=== PATIENT | female | born 1945 | race African-American/Black ===

== ENCOUNTER 2020-06-12 22:19 | Inpatient (IN) | payer MEDICAID, MEDICARE ==
[~2020-06-12] VITALS: Ht 160 cm; Wt 70.1 kg
[2020-06-12] MEDS ORDERED: DEXTROSE 50% WATER 50ML SYRINGE IV ONE (22:45)
[2020-06-12 23:16] LABS: BASOPHILS % 0.3 % (0.0-2.0); EOSINOPHILS % 0.1 % (0.0-5.0); HEMOGLOBIN. 10.7 g/dL (12.0-16.0); LYMPHOCYTES % 11.7 % (20.0-50.0); MEAN CORPUSCULAR HEMOGLOBIN 20.3 pg (28.0-32.0); MEAN CORPUSCULAR VOLUME 68.3 fL (81.0-99.0); MEAN PLATELET VOLUME 8.7 fl (7.4-10.4); MONOCYTES % 7.4 % (2.0-8.0); NEUTROPHILS % 80.5 % (40.0-76.0); PLATELET 413 x1000/uL (130-400); RED BLOOD CELL COUNT 5.27 mill/uL (4.2-5.4); RED CELL DISTRIBUTION WIDTH 26.3 % (11.6-14.6)
[2020-06-12 23:35] LABS: CHLORIDE 99 mEq/L (98-107)
[2020-06-13] MEDS ORDERED: CEFTRIAXONE 1 G PREMIX 50 ML IV ONE (01:00)
[2020-06-13] MEDS ORDERED: DOXYCYCLINE HYCLATE 100 MG/VIAL IV ONE (01:15)
[2020-06-13] MEDS ORDERED: DOXYCYCLINE 100MG in DEXTROSE 5% WATER 100ML IV NR (01:30)
[2020-06-13 02:18] LABS: CLARITY URINE CLEAR (CLEAR); COLOR URINE YELLOW (YELLOW); KETONES URINE 1+ (NEGATIVE); LEUKOCYTE ESTERASE URINE NEGATIVE (NEGATIVE); NITRITE URINE NEGATIVE (NEGATIVE); OCCULT BLOOD URINE 3+ (NEGATIVE); PH URINE 6.5 (4.5-8.0); PROTEIN URINE NEGATIVE (NEGATIVE); SPECIFIC GRAVITY URINE 1.012 (1.005-1.030)
[2020-06-13] MEDS ORDERED: SODIUM CHLORIDE 0.9% 500 ML IV ONE (02:30)
[2020-06-13] MEDS ORDERED: ONDANSETRON HCL 4MG/2ML INJ IV PRN (05:00)
[2020-06-13] MEDS ORDERED: CLONIDINE 0.1MG TABLET PO PRN (05:00)
[2020-06-13] MEDS ORDERED: ACETAMINOPHEN 325MG TABLET PO PRN (05:00)
[2020-06-13] MEDS ORDERED: TRAZODONE HCL 50MG TABLET PO PRN (05:00)
[2020-06-13] MEDS: SODIUM CHLORIDE 0.9% 1,000 ML IV SCH ×2 (05:10→09:58)
[2020-06-13] MEDS ORDERED: PIPERACILLIN/TAZOBACTAM 3.375 G in DEXTROSE 5% WATER 50 ML IV SCH (06:00)
[2020-06-13] MEDS ORDERED: POTASSIUM CHLORIDE 20MEQ TABLET SR PO NR (06:00)
[2020-06-13] MEDS ORDERED: VANCOMYCIN 1 G PREMIX 200 ML IV SCH (06:15)
[2020-06-13] MEDS ORDERED: HEPARIN 5000 UNITS/ML VIAL SUBCUT SCH (09:00)
[2020-06-13] MEDS: ENOXAPARIN 80MG/0.8ML SYR SUBCUT SCH ×2 (10:08→21:00)
[2020-06-13] MEDS: METOPROLOL TARTRATE 25MG TABLET PO SCH ×2 (10:36→21:00)
[2020-06-13] MEDS: ASPIRIN 81MG EC TABLET PO SCH (10:37)
[2020-06-13 10:45] LABS: BASOPHILS % 0.1 % (0.0-2.0); HEMATOCRIT. 35.2 % (36.0-48.0); HEMOGLOBIN. 10.5 g/dL (12.0-16.0); MEAN CORPUSCULAR HEMOGLOBIN 19.9 pg (28.0-32.0); MEAN CORPUSCULAR VOLUME 66.5 fL (81.0-99.0); MEAN PLATELET VOLUME 8.8 fl (7.4-10.4); MONOCYTES % 6.7 % (2.0-8.0); NEUTROPHILS % 84.2 % (40.0-76.0); PLATELET 374 x1000/uL (130-400); RED CELL DISTRIBUTION WIDTH 26.3 % (11.6-14.6)
[2020-06-13 10:48] LABS: CHLORIDE 97 mEq/L (98-107)
[2020-06-13 10:59] LABS: INR 1.3; PROTHROMBIN TIME 13.7 sec (9.6-11.0)
[2020-06-13 11:32] LABS: PLATELET ESTIMATE NORMAL
[2020-06-13] MEDS: PIPERACILLIN/TAZ 3.375G PREMIX 50 ML IV SCH ×2 (12:49→18:23)
[2020-06-13] MEDS ORDERED: POTASSIUM CHLORIDE INJ 40 MEQ in DEXT 5% WATER 250 ML IV SCH (13:00)
[2020-06-13] MEDS ORDERED: POTASSIUM CHLORIDE 20MEQ TABLET SR PO SCH (13:00)
[2020-06-13] MEDS ORDERED: DEXTROSE 50% WATER 50ML SYRINGE IV PRN (14:45)
[2020-06-13] MEDS ORDERED: VANCOMYCIN 750 MG PREMIX 150 ML IV SCH (18:00)
[2020-06-13] MEDS: BLOOD SUGAR DIAGNOSTIC STRIP TEST SCH ×2 (18:42→21:54)
[2020-06-13] MEDS: ATORVASTATIN CALCIUM 20MG TABLET PO SCH (21:00)
[2020-06-14 01:46] VITALS: BP 123/58
[2020-06-14 03:00] VITALS: BP 141/82
[2020-06-14] MEDS: PIPERACILLIN/TAZOBACTAM 3.375 G in DEXT 5% WATER 100 ML IV SCH ×3 (03:27→11:38)
[2020-06-14] MEDS ORDERED: VANCOMYCIN 750 MG PREMIX 150 ML IV SCH (06:00)
[2020-06-14] MEDS: SODIUM CHLORIDE 0.9% 1,000 ML IV SCH (06:37)
[2020-06-14 06:50] LABS: BASOPHILS % 0.1 % (0.0-2.0); HEMATOCRIT. 34.4 % (36.0-48.0); HEMOGLOBIN. 10.3 g/dL (12.0-16.0); LYMPHOCYTES % 17.4 % (20.0-50.0); MEAN CORPUSCULAR HEMOGLOBIN 20.1 pg (28.0-32.0); MEAN CORPUSCULAR VOLUME 67.2 fL (81.0-99.0); MEAN PLATELET VOLUME 8.8 fl (7.4-10.4); MONOCYTES % 8.6 % (2.0-8.0); NEUTROPHILS % 73.9 % (40.0-76.0); PLATELET 293 x1000/uL (130-400); RED BLOOD CELL COUNT 5.13 mill/uL (4.2-5.4); RED CELL DISTRIBUTION WIDTH 25.8 % (11.6-14.6)
[2020-06-14 07:39] LABS: CHLORIDE 99 mEq/L (98-107)
[2020-06-14 08:00] VITALS: BP 131/81
[2020-06-14] MEDS: BLOOD SUGAR DIAGNOSTIC STRIP TEST SCH ×4 (08:18→20:06)
[2020-06-14] MEDS: ENOXAPARIN 80MG/0.8ML SYR SUBCUT SCH ×2 (09:18→20:10)
[2020-06-14] MEDS: METOPROLOL TARTRATE 25MG TABLET PO SCH (09:18)
[2020-06-14] MEDS: ASPIRIN 81MG EC TABLET PO SCH (09:18)
[2020-06-14 10:07] LABS: *AMPHETAMINES SCREEN URINE NEGATIVE (NEGATIVE); *BARBITURATES SCREEN URINE NEGATIVE (NEGATIVE); *BENZODIAZEPINES SCREEN URINE NEGATIVE (NEGATIVE)
[2020-06-14 10:08] LABS: *COCAINE SCREEN URINE NEGATIVE (NEGATIVE); CANNABINOID URINE SCREEN NEGATIVE (NEGATIVE); METHADONE URINE SCREEN NEGATIVE (NEGATIVE); OPIATES URINE SCREEN PRESUMTIVE POSITIVE (NEGATIVE); PHENCYCLIDINE URINE SCREEN NEGATIVE (NEGATIVE)
[2020-06-14 12:00] VITALS: BP 130/73
[2020-06-14] MEDS ORDERED: POTASSIUM CHLORIDE 20MEQ TABLET SR PO NR (12:30)
[2020-06-14] MEDS ORDERED: FUROSEMIDE 100MG/10ML VIAL IVP NR (12:34)
[2020-06-14] MEDS ORDERED: POTASSIUM CHLORIDE 20MEQ TABLET SR PO SCH ×2 (14:00→16:00)
[2020-06-14 16:00] VITALS: BP 132/83
[2020-06-14] MEDS ORDERED: FUROSEMIDE 40MG/4ML VIAL IVP SCH (17:15)
[2020-06-14 20:00] VITALS: BP 136/83
[2020-06-14] MEDS: CARVEDILOL 6.25 MG TABLET PO SCH (20:10)
[2020-06-14] MEDS: ATORVASTATIN CALCIUM 20MG TABLET PO SCH (20:10)
[2020-06-15] VITALS: BP 127/71
[2020-06-15 04:00] VITALS: BP 107/59
[2020-06-15 07:03] LABS: HEMATOCRIT. 32.5 % (36.0-48.0); HEMOGLOBIN. 9.5 g/dL (12.0-16.0); MEAN CORPUSCULAR HEMOGLOBIN 19.9 pg (28.0-32.0); MEAN CORPUSCULAR VOLUME 68.1 fL (81.0-99.0); MEAN PLATELET VOLUME 9.3 fl (7.4-10.4); PLATELET 291 x1000/uL (130-400); RED BLOOD CELL COUNT 4.77 mill/uL (4.2-5.4); RED CELL DISTRIBUTION WIDTH 25.9 % (11.6-14.6)
[2020-06-15 07:49] LABS: CHLORIDE 104 mEq/L (98-107)
[2020-06-15 08:00] VITALS: BP 132/87
[2020-06-15] MEDS: BLOOD SUGAR DIAGNOSTIC STRIP TEST SCH ×4 (08:16→21:00)
[2020-06-15] MEDS: CARVEDILOL 6.25 MG TABLET PO SCH ×2 (08:20→20:52)
[2020-06-15] MEDS: ASPIRIN 81MG EC TABLET PO SCH (08:20)
[2020-06-15] MEDS: ENOXAPARIN 80MG/0.8ML SYR SUBCUT SCH ×2 (08:21→20:52)
[2020-06-15] MEDS ORDERED: ATOR20TA PO (09:39)
[2020-06-15] MEDS ORDERED: LOSA25TA26 MT (09:39)
[2020-06-15] MEDS ORDERED: COR6 PO (09:39)
[2020-06-15] MEDS ORDERED: RIVA20TA MT (09:39)
[2020-06-15] MEDS ORDERED: ASPI-1406 PO (09:39)
[2020-06-15 11:53] LABS: BG BASE EXCESS 8.2 mmol/L (-2.0-2.0); BG CARBOXYHEMOGLOBIN 1.1 % (0.5-1.5); BG HCO3 ACT 34.4 mmol/L (22.0-26.0); BG METHEMOGLOBIN 0.4 % (0.0-1.5); BG OXYGEN SATURATION 80.7 % (92.0-98.5); BG OXYHEMOGLOBIN 79.5 % (94.0-97.0); BG PCO2 57.4 mmHg (35.0-45.0); BG PH 7.395 (7.350-7.450); BG PO2 47.3 mmHg (75.0-100.0); BG SAMPLE SITE RIGHT RADIAL; BG TOTAL HEMOGLOBIN 9.6 g/dL (12.0-18.0); BG VENT MODE ROOM AIR
[2020-06-15 11:59] VITALS: BP 117/55
[2020-06-15 14:59] LABS: PLATELET ESTIMATE NORMAL
[2020-06-15 16:00] VITALS: BP 123/72
[2020-06-15 20:00] VITALS: BP 126/73
[2020-06-15] MEDS: ATORVASTATIN CALCIUM 20MG TABLET PO SCH (20:52)
[2020-06-16] VITALS: BP 121/65
[2020-06-16 04:00] VITALS: BP 121/51
[2020-06-16 06:45] LABS: CHLORIDE 103 mEq/L (98-107)
[2020-06-16 06:48] LABS: BASOPHILS % 0.5 % (0.0-2.0); EOSINOPHILS % 0.6 % (0.0-5.0); HEMATOCRIT. 33.4 % (36.0-48.0); LYMPHOCYTES % 26.5 % (20.0-50.0); MEAN CORPUSCULAR HEMOGLOBIN 20.2 pg (28.0-32.0); MEAN CORPUSCULAR VOLUME 67.5 fL (81.0-99.0); MONOCYTES % 9.6 % (2.0-8.0); NEUTROPHILS % 62.8 % (40.0-76.0); PLATELET 272 x1000/uL (130-400); RED BLOOD CELL COUNT 4.94 mill/uL (4.2-5.4); RED CELL DISTRIBUTION WIDTH 25.2 % (11.6-14.6)
[2020-06-16] MEDS: BLOOD SUGAR DIAGNOSTIC STRIP TEST SCH ×2 (07:52→12:30)
[2020-06-16 08:00] VITALS: BP 160/95
[2020-06-16] MEDS: ASPIRIN 81MG EC TABLET PO SCH (08:08)
[2020-06-16] MEDS: CARVEDILOL 6.25 MG TABLET PO SCH (08:08)
[2020-06-16] MEDS: ENOXAPARIN 80MG/0.8ML SYR SUBCUT SCH (08:14)
[2020-06-16 12:00] VITALS: BP 133/93
[2020-06-16 13:57] VITALS: BP 133/93
[2020-06-16 16:00] VITALS: BP 153/86
== END 2020-06-16 17:00 | disposition home health service (06) | DRG 871 ==
LOC: ER 22:19 → MICUSO 06-13 01:49 → 5EST 06-14 00:01
PROVIDERS: ADMIT Family Medicine Adult Medicine; ATTEND Family Medicine Adult Medicine
DX: A41.9 Sepsis, unspecified organism (principal); G93.41 Metabolic encephalopathy; I21.4 Non-ST elevation (NSTEMI) myocardial infarction; I50.23 Acute on chronic systolic (congestive) heart failure; J96.00 Acute respiratory failure, unspecified whether with hypoxia or hypercapnia; J18.9 Pneumonia, unspecified organism; E87.3 Alkalosis; I42.9 Cardiomyopathy, unspecified; D64.9 Anemia, unspecified; E87.6 Hypokalemia; E11.649 Type 2 diabetes mellitus with hypoglycemia without coma; M19.90 Unspecified osteoarthritis, unspecified site; E78.5 Hyperlipidemia, unspecified; I11.0 Hypertensive heart disease with heart failure; Z20.822 Contact with and (suspected) exposure to COVID-19; R00.0 Tachycardia, unspecified; R65.20 Severe sepsis without septic shock; Z79.899 Other long term (current) drug therapy; I25.10 Atherosclerotic heart disease of native coronary artery without angina pectoris
CPT/HCPCS: 36415; 36600; 71045; 80048; 80053; 80061; 80202; 80305; 81003; 82375; 82805; 82962; 83036; 83605; 83735; 83880; 84145; 84484; 85025; 87426; 93005; 93306; 99285; J0696; J1644; J1650; J1940; J2543; J3370; J3480; J3490; J7040; J7060